=== PATIENT | male | born 1970 | race Caucasian/White ===

== ENCOUNTER 2018-08-17 14:37 | Emergency (ER) | payer SELFPAY ==
[2018-08-17] MEDS ORDERED: NORMAL SALINE 1000 ML 1,000 ML IV ONE (16:33)
[2018-08-17] MEDS ORDERED: ONDANSETRON HCL INJ/PF 4 MG/2 ML SDV IV ONE (16:33)
--- NOTE | 2018-08-17 16:34 | ER Document Report ---
ED Medical Screen (RME) - General Chief Complaint: Jaw Pain Stated Complaint: COUGH, JAW AND HEAD PAIN Time Seen by Provider: 08/17/18 16:32 Mode of Arrival: Ambulatory Information source: Patient Notes: Patient presents complaining of left-sided headache pain that radiates from his jaw. Patient is concerned that he may have a dental infection. Patient states that he has been spitting up blood that he attributes to his infected tooth. Patient states that he did vomit blood 3 days ago. Patient complains of nausea. I have greeted and performed a rapid initial assessment of this patient. A comprehensive ED assessment and evaluation of the patient, analysis of test results and completion of the medical decision making process will be conducted by additional ED providers. Physical Exam - Vital signs Vitals: Temp Pulse Resp BP Pulse Ox 98.4 F 73 16 165/86 H 98 08/17/18 15:01 08/17/18 15:01 08/17/18 15:01 08/17/18 15:01 08/17/18 15:01 - HEENT Mouth/Lips: Caries - Left lower jaw Course - Vital Signs Vital signs: Temp Pulse Resp BP Pulse Ox 98.4 F 73 16 165/86 H 98 08/17/18 15:01 08/17/18 15:01 08/17/18 15:01 08/17/18 15:01 08/17/18 15:01
[2018-08-17 17:20] LABS: ABSOLUTE BASOPHILS # (AUTO) 0.1 10^3/uL (0.0-0.2); ABSOLUTE EOSINOPHILS # (AUTO) 0.2 10^3/uL (0.0-0.6); ABSOLUTE LYMPHOCYTES (AUTO) 2.3 10^3/uL (0.5-4.7); ABSOLUTE MONOCYTES (AUTO) 0.5 10^3/uL (0.1-1.4); ABSOLUTE NEUT (AUTO) 3.7 10^3/uL (1.7-8.2); BASOPHILS % (AUTO) 1.1 % (0-2); EOSINOPHILS % (AUTO) 3.7 % (0-6); HEMATOCRIT 45.4 % (37.9-51.0); HEMOGLOBIN 15.5 g/dL (13.5-17.0); LYMPHOCYTES % (AUTO) 33.6 % (13-45); MEAN CORPUSCULAR HEMOGLOBIN 30.6 pg (27.0-33.4); MEAN CORPUSCULAR HGB CONC 34.2 g/dL (32.0-36.0); MEAN CORPUSCULAR VOLUME 89 fl (80-97); PLATELET COUNT 155 10^3/uL (150-450); RED BLOOD COUNT 5.09 10^6/uL (4.35-5.55); RED CELL DISTRIBUTION WIDTH 13.3 % (11.5-14.0); SEGMENTED NEUTROPHILS % (AUTO) 54.6 % (42-78); TOTAL CELLS COUNTED % (AUTO) 100 %; WHITE BLOOD COUNT 6.7 10^3/uL (4.0-10.5)
[2018-08-17 17:23] LABS: PROTHROMBIN TIME 14.8 SEC (11.4-15.4)
[2018-08-17 17:24] LABS: PARTIAL THROMBOPLASTIN TIME 28.8 SEC (23.5-35.8)
[2018-08-17 17:39] LABS: ALANINE AMINOTRANSFERASE 62 U/L (21-72); ALBUMIN 4.7 g/dL (3.5-5.0); ALKALINE PHOSPHATASE 62 U/L (38-126); ANION GAP 13 (5-19); ASPARTATE AMINO TRANSFERASE 37 U/L (17-59); BILIRUBIN,DIRECT 0.1 mg/dL (0.0-0.4); BILIRUBIN,TOTAL 0.7 mg/dL (0.2-1.3); BLOOD UREA NITROGEN 17 mg/dL (7-20); CALCIUM 9.7 mg/dL (8.4-10.2); CARBON DIOXIDE 25 mmol/L (22-30); CHLORIDE 105 mmol/L (98-107); GLUCOSE 91 mg/dL (75-110); POTASSIUM 4.5 mmol/L (3.6-5.0); SODIUM 142.8 mmol/L (137-145); TOTAL PROTEIN 7.6 g/dL (6.3-8.2)
--- NOTE | 2018-08-17 18:45 | ER Document Report ---
ED General - General Mode of Arrival: Ambulatory - HPI Onset: Last week - Intermittent jaw pain x 2-3 weeks. Last Saturday pain became constant, severe, radiated around the back of his head to his left eye. Onset/Duration: Gradual, Constant Quality of pain: Sharp Pain Level: 3 <ARMEN CARRERA - Last Filed: 08/18/18 00:01> <MARK MAIER - Last Filed: 08/18/18 00:55> - General Chief Complaint: Jaw Pain Stated Complaint: COUGH, JAW AND HEAD PAIN Time Seen by Provider: 08/17/18 16:32 - HPI Notes: 48-year-old male presents to the ED with jaw pain rated a 4 out of 10 x 1 week. Patient states the pain began 2-3 weeks ago and was intermittent in nature. Now the pain is constant characterized as severe that radiates around his ear up the back of his head into his left eye. Patient denies any vision changes denies fever chills or other constitutional symptoms, endorses nausea and decreased appetite. Patient says he has lost 18 pounds in the last week or 2. He noted that the blood is coming from what he thinks is his gum or his gum pocket next to the #30 tooth. Patient uses smokeless tobacco, 1 can of dip times 35 years, current user but greatly decreased since the symptoms presented. (ARMEN CARRERA) - Related Data Allergies/Adverse Reactions: No Known Allergies Allergy (Verified 08/17/18 16:46) Past Medical History - General Information source: Patient - Social History Smoking Status: Never Smoker Chew tobacco use (# tins/day): Yes - 1 can/ day x 35 years, current user Frequency of alcohol use: None Drug Abuse: None Family History: None Patient has suicidal ideation: No Patient has homicidal ideation: No Renal/ Medical History: Denies: Hx Peritoneal Dialysis <ARMEN CARRERA - Last Filed: 08/18/18 00:01> Review of Systems - Review of Systems Constitutional: denies: Chills, Fever EENT: Eye pain - L eye radiates from jaw. denies: Blurred vision, Double vision , Ear pain Cardiovascular: No symptoms reported Respiratory: No symptoms reported Gastrointestinal: No symptoms reported <ARMEN CARRERA - Last Filed: 08/18/18 00:01> Physical Exam - General In distress: Mild - HEENT Head: Normocephalic, Tenderness - TTP along inferior border and angle of L mandible Eyes: Normal Conjunctiva: Normal Extraocular movements intact: Yes Mouth/Lips: Lesions - Ulceration approximately 5 cm x 1 cm seen seen in left pupil area next #30 tooth. No evidence of infection. No masses found. Mucous membranes: Normal Pharynx: Normal Neck: Normal - Respiratory Respiratory status: No respiratory distress - Neurological Neuro grossly intact: Yes Cognition: Normal Orientation: AAOx4 Speech: Normal <ARMEN CARRERA - Last Filed: 08/18/18 00:01> - HEENT Mouth/Lips: Other - Ulceration was found in the jaw area on the left side around tooth number of 30 no signs of gingival cellulitis no signs of infection palpation of the oral mucosa does not reveal any masses no sublingual masses no masses within the jaw no masses tongue. - Cardiovascular Rhythm: Regular Heart sounds: Normal auscultation <MARK MAIER - Last Filed: 08/18/18 00:55> - Vital signs Vitals: Temp Pulse Resp BP Pulse Ox 98.4 F 73 16 165/86 H 98 08/17/18 15:01 08/17/18 15:01 08/17/18 15:01 08/17/18 15:01 08/17/18 15:01 - General Notes: Well-developed well-nourished male appears with mild discomfort (ARMEN CARRERA) Course - Laboratory Result Diagrams: 08/17/18 16:56 08/17/18 16:56 <ARMEN CARRERA - Last Filed: 08/18/18 00:01> - Laboratory Result Diagrams: 08/17/18 16:56 08/17/18 16:56 <MARK MAIER - Last Filed: 08/18/18 00:55> - Re-evaluation Re-evalutation: 08/18/18 00:54 I did personally evaluate this patient with the mid-level provider. Ulceration in the jaw more likely from patient's chronic dipping. Patient educated about the need to stop more likely most of his symptoms will resolve no signs of dental infection no signs of gingival cellulitis no need for antibiotics at this time. Patient was discharged home follow-up with the [facility]. (MARK MAIER) - Vital Signs Vital signs: Temp Pulse Resp BP Pulse Ox 98.4 F 64 18 142/85 H 95 08/17/18 15:01 08/17/18 20:03 08/17/18 20:03 08/17/18 20:03 08/17/18 20:03 Discharge <ARMEN CARRERA - Last Filed: 08/18/18 00:01> <MARK MAIER - Last Filed: 08/18/18 00:55> - Discharge Clinical Impression: Mouth ulcer adjacent to jaw bone Condition: Good Disposition: HOME, SELF-CARE Instructions: Mouth Sores ([facility]) Additional Instructions: The most important way for your mouth to heal is to quit dipping. For the pain, take Motrin 600 mg every 8 hours. The [facility] is a free clinic. We have provided the clinic information for you. Try to maintain good oral health. If you pain persists or worsens please go to the clinic or return to the emergency department. Prescriptions: Ibuprofen [Motrin 600 mg Tablet] 600 mg PO Q8HP PRN #24 tablet PRN Reason:
[2018-08-17] MEDS ORDERED: LIDOCAINE 2% VISCOUS SOLN 20 ML UDCUP PO ONE (19:48)
[2018-08-17] MEDS ORDERED: KETOROLAC TROMETHAMINE INJ/PF 30 MG/1 ML SDV IV ONE (19:49)
[2018-08-17 20:08] VITALS: BP 142/85
== END 2018-08-17 20:07 | disposition home or self-care (01) ==
LOC: ER 14:37
DX: K12.1 Other forms of stomatitis (principal); R68.84 Jaw pain; R05 Cough; R51 Headache; F17.220 Nicotine dependence, chewing tobacco, uncomplicated
CPT/HCPCS: 99283; 96361; 96374; 96375; 36415; 85025; 85610; 85730; 80053; J3490; J1885; J2405; J7030